=== PATIENT | male | born 1965 | race Native Hawaiian/Other Pacific Islander ===

== ENCOUNTER 2018-04-30 14:23 | Emergency (ER) | payer BC ==
[~2018-04-30] VITALS: Ht 180.3 cm; Wt 79.4 kg
[2018-04-30 14:37] VITALS: TEMP 97.9
[2018-04-30 17:04] VITALS: BP 124/76
== END 2018-04-30 17:05 | disposition home or self-care (01) ==
LOC: ED 14:23
DX: N20.0 Calculus of kidney (principal)
CPT/HCPCS: 81000; 96372; 99283; J1885

== ENCOUNTER 2018-05-02 12:50 | Outpatient (CLI) | payer BC | END 2018-05-02 22:12 | disposition home or self-care (01) | LOC: CT 12:50 | DX: N20.2 Calculus of kidney with calculus of ureter (principal) ==

== ENCOUNTER 2019-05-23 17:06 | Emergency (ER) | payer BC ==
[~2019-05-23] VITALS: Ht 180.3 cm; Wt 88.5 kg
[2019-05-23 17:13] VITALS: BP 162/90; TEMP 98.6
[2019-05-23 18:01] LABS: PLATELET COUNT 282 K/uL (142-355)
[2019-05-23 18:06] LABS: POTASSIUM 3.9 mmol/L (3.6-5.2)
== END 2019-05-23 19:07 | disposition home or self-care (01) ==
LOC: ED 17:06
PROVIDERS: Family Medicine
DX: N23 Unspecified renal colic (principal); N13.2 Hydronephrosis with renal and ureteral calculous obstruction; Z87.442 Personal history of urinary calculi
CPT/HCPCS: 80053; 81000; 85027; 96360; 96375; 99284; J1885